=== PATIENT | male | born 1950 | race Caucasian/White ===

== ENCOUNTER 2016-08-03 11:11 | Emergency (ER) | payer SELFPAY ==
[~2016-08-03] VITALS: Ht 180.3 cm; Wt 97.0 kg
[2016-08-03 11:13] VITALS: BP 158/98; PULSE 82; RESP 15; TEMP 98.2; O2SAT 99
--- NOTE | 2016-08-03 11:20 | PD ---
Physical Exam Time Seen by Provider: 11:18 Narrative 65yo M w/ c/o rash to his back x9 days. Stayed in hotel 9 days ago w/ onset of rash. Itchy. Denies Fever, vomiting. Patient stable. Patient seen in triage. Awaiting bed placement. Data Data Last Documented VS Vital Signs Date Time Temp Pulse Resp B/P Pulse Ox O2 Delivery O2 Flow Rate FiO2 08/03/16 11:13 98.2 82 15 158/98 99 MDM Supervised Visit with ROBE: Brenda Forrester Aug 03, 2016 11:20
--- NOTE | 2016-08-03 11:59 | PD ---
HPI . itching rash after staying at a hotel Chief Complaint: Skin Problem Time Seen by Provider: 11:59 Travel History International Travel<30 days: No Contact w/Intl Traveler<30days: No Traveled to known affect area: No History of Present Illness HPI 65-year-old male here with complaints of itching rash to his back that has been there for approximately 9 days. Patient says he started staying at a new motel and thinks that he may have been bitten by some bugs. He is uncertain because he does not have any actual evidence of insect bite nor has he found any bugs. He is here complaining of a very itchy rash to his back. He has multiple excoriations. He does not have any evidence of cellulitis. He denies any fever or chills. He denies any painful lesions. He tells me he will be getting Medicare in a few days and will be establishing with a new primary care provider. He has an appointment in a few days, but they're unable to see him now as his insurance is not active at this moment. He has no other complaints. PFSH Past Medical History Medical History: Denies Significant Hx Social History Tobacco Use: No Allergies-Medications (Allergen,Severity, Reaction): Coded Allergies: No Known Allergies (Unverified , 08/03/16) Reported Meds & Prescriptions Reported Meds & Active Scripts Active Prednisone 50 Mg Tab 50 Mg PO DAILY Review of Systems General / Constitutional: No: Fever Eyes: No: Visual changes HENT: No: Headaches Cardiovascular: No: Chest Pain or Discomfort Respiratory: No: Shortness of Breath Gastrointestinal: No: Abdominal Pain Genitourinary: No: Dysuria Musculoskeletal: No: Pain Skin: Positive Rash, Positive Itching Neurologic: No: Weakness Psychiatric: No: Depression Endocrine: No: Polydipsia Hematologic/Lymphatic: No: Easy Bruising Physical Exam Narrative GENERAL: AAO x 3, no acute distress, Well-nourished, well-developed patient. SKIN: Warm and dry. No visible rashes or bruising. Multiple crusted excoriations over the back. There is 2 small areas on the right lower back that is erythematous without any evidence of warmth, drainage or other abnormalities. flat, urticarial like HEAD: Normocephalic and atraumatic. EYES: No scleral icterus. No injection or drainage. ENT: No nasal drainage noted. Mucous membranes pink. Airway patent. NECK: Supple, trachea midline. No JVD. CARDIOVASCULAR: Regular rate and rhythm without murmurs, gallops, or rubs. RESPIRATORY: Breath sounds equal bilaterally. No accessory muscle use. No rhonchi or rales. GASTROINTESTINAL: Abdomen soft, non-tender, nondistended. EXTREMITIES: No cyanosis or edema. BACK: Nontender without obvious deformity. No CVA tenderness. PSYCH: AAO x 3, normal affect. Data Data Last Documented VS Vital Signs Date Time Temp Pulse Resp B/P Pulse Ox O2 Delivery O2 Flow Rate FiO2 08/03/16 11:13 98.2 82 15 158/98 99 MDM Medical Decision Making Medical Screen Exam Complete: Yes Emergency Medical Condition: Yes Medical Record Reviewed: Yes Differential Diagnosis bed bug bites, contact dermatitis, less likely shingles, less likely scabies Narrative Course 65-year-old male here with complaints of itching rash to his back that has been there for approximately 9 days. Patient says he started staying at a new motel and thinks that he may have been bitten by some bugs. He is uncertain because he does not have any actual evidence of insect bite nor has he found any bugs. He is here complaining of a very itchy rash to his back. He has multiple excoriations. He does not have any evidence of cellulitis. He denies any fever or chills. He denies any painful lesions. He tells me he will be getting Medicare in a few days and will be establishing with a new primary care provider. He has an appointment in a few days, but they're unable to see him now as his insurance is not active at this moment. He has no other complaints. Patient seen and examined. He appears to have a very mild contact dermatitis. There is no evidence of cellulitis. There are multiple excoriations scattered all over his back. He has been instructed to leave these alone and not pick at them. I'll provide him with a short course of steroids. He can follow-up with his primary care provider at the next appointment Patient verbalized understanding of instructions, questions were answered, and thanked me for their care. I advised them if their condition worsens, please return to the nearest emergency room for further care. Diagnosis Primary Impression: Contact dermatitis Qualified Code: L25.9 - Contact dermatitis, unspecified contact dermatitis type, unspecified trigger Patient Instructions: General Instructions Additional Instructions: Please return to emergency department if your symptoms return or worsen. Follow up with your primary care provider. Take medications as prescribed. Try not to pick at the scratches/scabs on your back. Med/Other Pt SpecificInfo: Prescription(s) given Scripts Prednisone 50 Mg Tab50 Mg PO DAILY #5 TAB Prov:Peg Page MD 08/03/16 Disposition: 01 DISCHARGE HOME Condition: Stable Bhavna Matthews Aug 03, 2016 11:59
[2016-08-03] MEDS ORDERED: PRED50 PO ×2 (12:03→12:31)
== END 2016-08-03 12:59 | disposition home or self-care (01) ==
LOC: NEPK 11:11
DX: L25.9 Unspecified contact dermatitis, unspecified cause (principal)
CPT/HCPCS: 99282